=== PATIENT | male | born 1995 | race Two or more races ===

== ENCOUNTER 2018-04-21 04:42 | Emergency (ER) | payer SELFPAY ==
[~2018-04-21] VITALS: Ht 157.5 cm; Wt 115.7 kg
[~2018-04-21 04:42] MED LIST: ALBU90OI INH; Amoxicillin500 MG PO; BENZ100A PO; Bactroban22 GM TOP; CEPH500 PO; Keflex500 MG PO; Norco 5-325 Ta1 EACH PO; Ultram50 MG PO; Vibramycin100 MG PO
[2018-04-21] MEDS ORDERED: CEPH500 PO (06:19)
== END 2018-04-21 06:30 | disposition home or self-care (01) ==
LOC: ER 04:42
DX: L60.0 Ingrowing nail (principal); Z88.8 Allergy status to other drugs, medicaments and biological substances; Z88.2 Allergy status to sulfonamides; Z88.1 Allergy status to other antibiotic agents
CPT/HCPCS: 99283

== ENCOUNTER 2019-10-17 15:18 | Emergency (ER) | payer OTHER ==
[~2019-10-17] VITALS: Ht 157.5 cm; Wt 117.9 kg
[2019-10-17] MEDS ORDERED: MONDOXYNE NL100 MG PO (16:10)
== END 2019-10-17 16:15 | disposition home or self-care (01) ==
LOC: ER 15:18
DX: L03.032 Cellulitis of left toe (principal); Z88.8 Allergy status to other drugs, medicaments and biological substances; Z88.2 Allergy status to sulfonamides; Z88.1 Allergy status to other antibiotic agents
CPT/HCPCS: 99283